=== PATIENT | male | born 1975 | race Caucasian/White ===

== ENCOUNTER 2017-03-04 15:20 | Emergency (ER) | payer MEDICAID ==
[~2017-03-04] VITALS: Ht 177.8 cm; Wt 86.2 kg
[2017-03-04 15:24] VITALS: BP_SYST 148
[2017-03-04] MEDS ORDERED: DIPH-TET-PERTUS Vaccine 0.5 ML VIAL (ADACEL) IM ONE (15:45)
[2017-03-04] MEDS ORDERED: BACITRACIN 1 GM OINT TP ONE (15:45)
[2017-03-04] MEDS ORDERED: LIDOCAINE/EPI 2% 1:100000 20 ML VIAL IJ ONE (15:45)
[2017-03-04 16:11] VITALS: BP_SYST 135
== END 2017-03-04 16:11 | disposition home or self-care (01) ==
LOC: SED 15:20
DX: S61.212A Laceration without foreign body of right middle finger without damage to nail, initial encounter (principal); I25.2 Old myocardial infarction; I10 Essential (primary) hypertension; W26.0XXA Contact with knife, initial encounter; Y93.89 Activity, other specified; Y92.090 Kitchen in other non-institutional residence as the place of occurrence of the external cause; Y99.8 Other external cause status
CPT/HCPCS: 90715; 99283

== ENCOUNTER 2017-03-14 14:55 | Emergency (ER) | payer MEDICAID ==
[~2017-03-14] VITALS: Ht 177.8 cm; Wt 81.6 kg
[2017-03-14 15:27] VITALS: BP_SYST 146
== END 2017-03-14 16:50 | disposition left against medical advice (07) ==
LOC: SED 14:55
DX: S61.212D Laceration without foreign body of right middle finger without damage to nail, subsequent encounter (principal); I25.2 Old myocardial infarction; I10 Essential (primary) hypertension; Z53.21 Procedure and treatment not carried out due to patient leaving prior to being seen by health care provider; X58.XXXD Exposure to other specified factors, subsequent encounter